=== PATIENT | male | born 1970 | race Caucasian/White ===

== ENCOUNTER 2017-04-05 18:52 | Inpatient (IN) | payer OTHER ==
[~2017-04-05] VITALS: Ht 172.7 cm; Wt 83.9 kg
--- NOTE | 2017-04-05 19:00 | NUR ---
PT HERE FROM INTERMEDIATE BROUHT IN VIA [facility] UN ABLE TO GIVE OWN HX PT BROUGHT FOR SOB REPORT FROM DAY SHIFT RN CONT TO MONITOR PT AWAIT ORDERS
[2017-04-05 19:35] LABS: BASOPHIL % 0.3 % (0-2); PLATELET COUNT 268 x10^3mcL (130-400)
[2017-04-05 19:37] LABS: CALCIUM 8.9 mg/dL (8.5-10.1); CARBON DIOXIDE 31.8 mmol/L (21-32); CHLORIDE SERUM 103 mmol/L (98-107); CREATININE SERUM 1.2 mg/dL (0.7-1.3); GFR1 > 60 mL/min; GLUCOSE SERUM 164 mg/dL (74-106); POTASSIUM SERUM 4.3 mmol/L (3.5-5.1); RED CELL DISTRIBUTION WIDTH 15.6 % (11.5-14.5); SODIUM SERUM 140 mmol/L (136-145)
[2017-04-05 19:53] LABS: ALKALINE PHOSPHATASE 119 U/L (46-116); ALT/SGPT 21 U/L (16-63); AST/SGOT 24 U/L (15-37); BILIRUBIN TOTAL 0.3 mg/dL (0.20-1.00); TOTAL PROTEIN, SERUM 7.6 g/dL (6.4-8.2)
--- NOTE | 2017-04-05 20:39 | NUR ---
PT FOR ADMISSION VS REMAIN THE SAME INFORMED MD OF CANDACE AWAIT ORDERS
--- NOTE | 2017-04-05 20:52 | NUR ---
PT MEDICATED PER MD ORDER
--- NOTE | 2017-04-05 21:59 | NUR ---
REPORT GIVEN TO AGUSTÍN Hernandez ALL QUESTIONS ASKED AND ANSWERED, PT TRANSFERED TO FLOOR IN STABLE CONDITION VIA [facility]OR[facility] Contreras/ AGUSTÍN W/ LL PERSONAL BELONGINGS
--- NOTE | 2017-04-05 22:02 | NUR ---
AGENCY DOCUMENTATION DONE BY Staff Name/Title - :PATRIC LIMON [employer] User ID - : Agency Name - :[facility] Time Documented - From - : To - :
[2017-04-05 22:31] VITALS: BP 122/58
--- NOTE | 2017-04-05 22:42 | NUR ---
RECEIVED PT FROM ED VIA [facility]. TELE 20 PLACED ON PT READING STA. IV NOTED TO RIGHT WRIST PATENT AND INTACT. ENDORSED PT TO PRIMARY NURSE CAITLIN
--- NOTE | 2017-04-05 23:10 | NUR ---
PATIENT'S PLAN OF CARE WAS DISCUSSED AND REVIEWED WITH BATH ATTENDANT:CAITLIN LAGUNAS
[2017-04-05 23:13] LABS: MAGNESIUM 1.8 mg/dL (1.8-2.4); PHOSPHOROUS 4.1 mg/dL (2.5-4.9)
[2017-04-05 23:15] LABS: FREE T4 1.1 ng/dL (0.76-1.46); FREE THYROXINE INDEX 2.8 ug/dL (1.4-4.5); T4(THYROXINE) 9.2 ug/dL (4.7-13.3)
[2017-04-05 23:20] VITALS: BP 122/58
--- NOTE | 2017-04-05 23:33 | NUR ---
RECEIVED PT FROM ADMIT NURSE SURU , PT'S AWAKE LUNG SOUNDS WITH WHEEZES , V/S WNL EXCEPT SAT WAS 82, PLACED PT ON 3L N/C SAT WENT UP TO 89, DR FLORES AWARE ORDERED RT PROTOCOL , BREATHING TREATMENT GIVEN , PT TOLERATED WELL SAT AT THE MOMENT WENT UP TO 92 ON 4L N/C , PIV TO RIGHT ARM INFUSING WELL NS AT 100ML/HR IVPB LEVAQUIN INFUSING AT THE MOMENT , NO A/R NOTED . WILL CON'T TO MONITOR AND ASSIST PT WITH CARE .PT'S ON TELE NUMBER [address] HR 106.
[2017-04-06 00:28] LABS: T3 TOTAL 1.32 ng/mL
[2017-04-06] MEDS ORDERED: DIVALPROEX SOD250 M2 PO (00:49)
[2017-04-06] MEDS ORDERED: CLONAZEPAM0.5 MG PO (00:49)
[2017-04-06] MEDS ORDERED: STOOL SOFTENER100 MG PO (00:50)
[2017-04-06] MEDS ORDERED: AMBIEN5 MG PO (00:50)
[2017-04-06] MEDS ORDERED: KEPPRA1000 M1 PO (00:51)
[2017-04-06] MEDS ORDERED: SEROQUEL200 MG PO (00:51)
[2017-04-06 01:44] LABS: microscopic required? NO
[2017-04-06 01:54] LABS: UA SPECIFIC GRAVITY 1.015 (1.005-1.035); urine erythrocyte NEGATIVE (NEGATIVE)
[2017-04-06 02:01] LABS: AMPHETAMINE QUAL UR NONE DETECTED (NEG <=1000)
--- NOTE | 2017-04-06 03:37 | NUR ---
TEMP 100.5 TYLENOL GIVEN ORDERED .
[2017-04-06 05:53] VITALS: BP 109/59
[2017-04-06 06:13] LABS: PLATELET COUNT 242 x10^3mcL (130-400)
--- NOTE | 2017-04-06 06:27 | NUR ---
ALL DUE MEDS GIVEN NO REACTION NOTED, PIV INTACT INFUSING WELL , TELE ST 101,POST TYLENOL TEMP WENT DOWN TO 98.9. WILL CON'T TO MONITOR PT CLOSELY.
[2017-04-06 06:31] LABS: CALCIUM 8.3 mg/dL (8.5-10.1); CARBON DIOXIDE 30.7 mmol/L (21-32); CHLORIDE SERUM 105 mmol/L (98-107); CREATININE SERUM 1.2 mg/dL (0.7-1.3); GFR1 > 60 mL/min; GLUCOSE SERUM 123 mg/dL (74-106); POTASSIUM SERUM 4.2 mmol/L (3.5-5.1); SODIUM SERUM 141 mmol/L (136-145); TRIGLYCERIDES 36 mg/dL (<150)
[2017-04-06 06:33] LABS: CHOLESTEROL 72 mg/dL (<200); CHOLESTEROL/HDL RATIO 4.5; HDL CHOLESTEROL 16 mg/dL (40-60)
[2017-04-06 06:43] LABS: RED CELL DISTRIBUTION WIDTH 15.4 % (11.5-14.5)
--- NOTE | 2017-04-06 07:40 | NUR ---
RC'D PT RESTING IN BED WITH NO APPARENT SIGNS OF DISTRESS. PT IS AWAKE AND NONVERBAL, RESPONDS TO STIMULI. ON TELE [address] NO APPARENT SIGNS OF DISTRESS. PALP PULSES, NO EDEMA NOTED. RESPIRATIONS EQUAL AND UNLABORED BILAT. NONPRODUCTIVE COUGH NOTED. WHEEZE PRESENT BILAT. ON 4L O2. RT PROTOCOL. ABDOMEN SOFT AND NONTENDER. ACTIVE BS. NO APPARENT SIGNS OF N/V. INCONTINENT AT TIMES. GENERALIZED WEAKNESS. PER REPORT PT USES WC AT HOME. SKIN W/D/. OLD SCARS NOTED ON BLE WITH SLIGHT REDDNESS. NO APPARENT SIGNS OF PAIN. RW IV PATENT AND INFUSING. PT IS CALM. EDUCATED ON USING CALL LIGHT WHEN NEEDING ASSISTANCE. WILL CONTINUE TO REEDUCATE. BED IN LOW POSITION. CALL LIGHT IN REACH. WILL CONTINUE TO MONITOR.
[2017-04-06 07:56] LABS: BAND NEUTROPHIL 17 % (0-10); BASOPHIL 0 % (0-2); MONOCYTE 13 % (0-7); MYELOCYTE 1 % (0-2); SEGMENTED NEUTROPHILS 61 % (37-75)
[2017-04-06 07:57] LABS: PLATELET MORPHOLOGY PLATELETS NORMAL; rbc morphology (normal/abnorm) ABNORMAL (NORMAL)
[2017-04-06 08:09] VITALS: BP 110/48
[2017-04-06 11:57] VITALS: BP 101/56
--- NOTE | 2017-04-06 12:25 | NUR ---
PT RESTING IN BED WITH EYES CLOSED. VISIBLE RESPIRATIONS EQUAL AND UNLABORED BILAT. NO APPARENT SIGNS OF DISTRESS. BED IN LOW POSITION. CALL LIGHT IN REACH. BED IN LOW POSITION.
--- NOTE | 2017-04-06 16:00 | NUR ---
PT AWAKE AND ALERT. NONVERBAL BUT RESPONDS TO STIMULI. PT ABLE TO NOD HEAD TO RESPOND TO QUESTIONS. EYES PEERLA. WILL CONTINUE TO MONITOR.
[2017-04-06 17:16] VITALS: BP 111/58
--- NOTE | 2017-04-06 18:17 | NUR ---
TEMP 100.2. MEDICATED WITH TYLENOL PO PER MED REC. CALL LIGHT IN REACH. BED IN LOW POSITION. WILL CONTINUE TO MONITOR.
--- NOTE | 2017-04-06 18:51 | NUR ---
PT RESTING IN BED WITH NO APPARENT SIGNS OF DISTRESS. RESPIRATIONS EQUAL AND UNLABORED. NON-PRODUCTIVE COUGH PRESENT. ON TELE WITH ST. ON 3L O2 VIA NC. IV PATENT AND INFUSING. BED IN LOW POSITION. CALL LIGHT IN REACH. WILL ENDORSE TO GUEST SERVICE SUPERVISOR.
--- NOTE | 2017-04-06 19:57 | NUR ---
PT IS OPEN EYE BUT NON VERBAL, ABLE TO NODE HEAD OR SHAKE THE HEAD FOR SOME SIMPLE QUESTION, LUNG SOUND CLEAR BILATERAL, NO COUGH, NO SOB AT THIS TIME, PT IS ON 4L/MIN O2 VIA NC, PO2 98%, PT IS ON 20, ST, NO S/S OF CHEST PAIN OR DISCOMFORT, BOWEL SOUND PRESENT ALL 4 QUADRANTS, NO DISTENTION, NO TENDER. PEDAL PULSE PRESENT BOTH FEET, NO EDEMA NOTED, IV AT RIGHT WRIST, NO LEAKING, NO INFILTRATION. PUT PT IS ON SEIZURE PRECAUTION. ALL ADLS ASSIST, ALL NEED MET, CALL LIGHT IN REACH, WILL CONTINUE TO MONTIOR.
[2017-04-06 20:43] VITALS: BP 126/59
--- NOTE | 2017-04-06 21:00 | NUR ---
PT HAD TEMP 101.3, PT IS NOT DUE FOR TYLENOL, CALLED THE DR. CARTWRIGHT. DR. MOORE WILL ORDER TORADOL. WILL CONTINUE TO MONITOR THE PT.
--- NOTE | 2017-04-07 00:35 | NUR ---
RECHECK THE TEMP 97.7. WILL CONTINUE TO MONITOR.
--- NOTE | 2017-04-07 00:56 | NUR ---
APPLY THE OPITFORM ON BOTH ELBOW TO PROTECT THE SKIN BREAKDOWN. WILL CONTINUE TO MONITOR THE PT.
--- NOTE | 2017-04-07 03:00 | NUR ---
PT DIDN'T HAS URINE OUTPUT SINCE SHIFT START, BLADDER SCAN SHOW OVER 200 ML URINE IN BLADDER, CALLED DR. CARTWRIGHT, DEVI CATH ORDER RECEIVED, AND CARRIED OUT. INSERT THE DEVI CATH, 300ML YELLOW URINE IS COME OUT, WILL CONTINUE TO MONITOR THE PT.
--- NOTE | 2017-04-07 03:14 | NUR ---
ASKED DR. CARTWRIGHT REGARDING THE UA TEST BECAUSE OF THE NEW DEVI CATH, AND ALSO INFORM DR. PT ALREADY HAD UA DONE ON YESTERDAY, 04/06, DR. CARTWRIGHT STATE IT'S TOO CLOSE, NO NECCESSARY TO DO ANOTHER UA. WILL CONTINUE TO MONITOR THE PT.
--- NOTE | 2017-04-07 05:09 | NUR ---
PT IS SLEEPING, AWAKE BY TOUCH, NON VERBAL, NO RESPIRATORY DISTRESS, NO S/S OF PAIN OR DISCOMFORT, NO SEIZURE ACTIVE THIS SHIFT, IV AT RIGHT FA, NO LEAKING, NO INFILTRATION. TURN AND REPOSITION PT EVERY 2 HOUR PROTOCAL, ALL ADLS ASSIST, ALL NEED MET, CALL LIGHT IN REACH, WILL CONTINUE TO MONITOR.
[2017-04-07 06:20] VITALS: BP 90/45
[2017-04-07 07:14] LABS: BASOPHIL % 0.2 % (0-2); PLATELET COUNT 231 x10^3mcL (130-400)
[2017-04-07 07:17] LABS: RED CELL DISTRIBUTION WIDTH 16.1 % (11.5-14.5)
[2017-04-07 07:40] LABS: CALCIUM 8.4 mg/dL (8.5-10.1); CARBON DIOXIDE 30.4 mmol/L (21-32); CHLORIDE SERUM 106 mmol/L (98-107); CREATININE SERUM 1.2 mg/dL (0.7-1.3); GFR1 > 60 mL/min; GLUCOSE SERUM 83 mg/dL (74-106); POTASSIUM SERUM 4.7 mmol/L (3.5-5.1); SODIUM SERUM 137 mmol/L (136-145)
--- NOTE | 2017-04-07 07:40 | NUR ---
RC'D PT RESTING IN BED WITH NO APPARENT SIGNS OF DISTRESS. PT AWAKE AND ALERT, NONVERBAL. PT RESPONDS WITH MOVEMENT TO VOICE AND STIMULI. RESPIRATIONS EQUAL AND UNLABORED. WHEEZE NOTED IN LUNGS. NON-PRODUCTIVE COUGH PRESENT. RT PROTOCOL. ON 4L O2 VIA NC. NO APPARENT SIGNS OF DISTRESS. ON TELE [address] PALP PULSES, NO EDEMA NOTED. ABDOMEN SOFT AND NONTENDER. ACTIVE BS. NO APPARENT SIGNS OF N/V. DEVI CATHETER PRESENT, WNL. REGGIE URINE NOTED WITH NO FOUL SMELL. GENERALIZED WEAKNESS. PT USES WC AT HOME. SKING W/D/I. OLD SCARS NOTED ON BLE. NO APPARENT SIGNS OF PAIN. IV PATENT AND INFUSING. BED IN LOW POSITION. CALL LIGHT IN REACH. PT EDUCATED ON USING CALL LIGHT WHEN NEEDING UNDERSTANDING. NO INDICATION OF UNDERSTANDING. WILL CONTINUE TO REEDUCATE. WILL CONTINUE TO MONITOR.
[2017-04-07 09:12] VITALS: BP 98/57
--- NOTE | 2017-04-07 12:13 | NUR ---
Intervention/RDN Recommendation(s): 1. Recommend ST evaluation for possible diet texture change. 2. Continue on current diet in appropriate texture per BOATBUILDER SUPERVISOR recommendations. 3. Consult RDN prn.
--- NOTE | 2017-04-07 12:13 | NUR ---
Initial Nutrition Assessment- Dx: PNA PMHx: seizure disorder, mental retardation, cerebral palsy PSHx: None Labs: (04/07/17) Na 137, K 4.7, Glucose 83, BUN 25H, Ca 8.4L, Phos 5H. Meds: Ambien, Colace, Depakote, Keppra, Levaquin, [place], Morphine sulfate, Sodium chl 0.9%, Tylenol, valproic acid, Zithromax Diet: Regular PO Intakes: 86-98-19-100%; overall average 68% x 4 meals; likely inadequate. Ht: 68 inches (154 pounds) Wt: 80.286 kg (177 pounds) BMI: 22.8 kg/m2, normal for age. IBW: 154 pounds (70 kg) %IBW: 100% UBW: Unknown Age: 46 Food Allergies: No know food allergies Skin: Bebo 14 Edema: None noted GI: Last BM 04/05/17 Pt admitted with dx: aspiration pneumonia, seizure disorder, developmental delay with mood disturbance, cerebral palsy, insomnia. Per STEEL HANGER, meal had to be chopped in small pieces as patient is coughing when eating; RN aware, RN attempted to feed patient also. STEEL HANGER reports patient does not appear to be using teeth to chew, STEEL HANGER described oral motions during meal time as slapping of tongue, lips together, tongue often sticks out. Patient may benefit from ST eval for possible diet texture change due to nursing report of difficulty chewing. RDN spoke with RN, STEEL HANGER, and regarding patient; RN states patient appears to be pocking food. RDN discussed recommendation for swallow/ST eval; MD Wu agrees. Problem with: N: no V: no D: no C: no Problems with: Chewing: possible Swallowing: possible Current appetite: fair Recent wt changes: %wt change: unknown Vitamin/Supplement: unknown Special Diet at Home: regular Physical activity: none Education: none Estimated Nutritional Needs Based on actual body weight of 80.286 kg. Energy: 1693-9806 kcal/d (25-30 kcal/kg for maintenance) Protein: 64-80 gm/d (0.8-1 gm/kg for maintenance) Fluid: 7648-1439 mL/d (1 mL/kcal) or per MD. Nutrition Diagnosis 1. Possible chewing difficulty related to pathophysiological causes as evidenced by nursing report of patient appears to have difficulty chewing, nursing report of having to chop up food at mealtimes, suboptimal PO intakes between 30-100%. Intervention/RDN Recommendation(s): 1. Recommend ST evaluation for possible diet texture change. 2. Continue on current diet in appropriate texture per SET BUILDER recommendations. 3. Consult RDN prn. Monitor/Evaluate Goal: Intake via PO intakes to meet least 75% of estimated needs. Monitor: PO intakes and/or nutrition support tolerance, Labs, GI function F/U in 3-5 days as moderate risk (04/10-04/12)
--- NOTE | 2017-04-07 12:24 | NUR ---
PT RESTING IN BED WITH NO APPARENT SIGNS OF DISTRESS. RESPONDS TO VOICE AND STIMULI. EYES PEERLA. PT ABLE TO NOD HEAD TO QUESTIONS. RESPIRATIONS EQUAL AND UNLABORED. BED IN LOW POSITION. SEIZURE PRECAUTIONS IN PLACE. WILL CONTINUE TO MONITOR.
[2017-04-07 17:32] VITALS: BP 112/49
--- NOTE | 2017-04-07 18:38 | NUR ---
PT RESTING IN BED WITH NO APPARENT SIGNS OF DISTRESS. NO SIGNS OF PAIN OR DISCOMFORT. RESPIRATIONS EQUAL AND UNLABORED BILAT. ON 3L O2 VIA NC. WHEEZE NOTED. RT PROTOCOL. IV PATENT AND INFUSING. BED IN LOW POSITION. CALL LIGHT IN REACH. WILL CONTINUE TO MONITOR.
--- NOTE | 2017-04-07 19:45 | NUR ---
SHIFT REASSESSMENT DONE.PATIENT AWAKE BUT CONFUSED.BROTHER AT BEDSIDE.SUPPORTIVE OF CARE.PATIENT WHEEZING,IV DECREASE TO TKO FOR NOW.RT PROTOCOL.BWDBOUND/WHEELCHAIR.MED SURG PATIENT.OLD SCAR TO BLE.SCD.WATCH CLOSELY FOR SAFETY.
--- NOTE | 2017-04-07 20:35 | NUR ---
PATIENT PUT IN OXIMIZER 4 LITERS,WAS DESATURATING AT 79%.PM MEDS GIVEN,WAS YELLIN EARLIER.HAS TO MIX MEDS WITH APPLE SAUCE.
--- NOTE | 2017-04-07 20:37 | NUR ---
PATIENT QUIET AND SETTLED DOWN,WAS MAKING NOISE EARLIER.QUIET ENVIRONMENT MAINTAINED.
[2017-04-07 20:42] VITALS: BP 118/69
[2017-04-07 20:52] VITALS: BP 118/69
--- NOTE | 2017-04-07 21:30 | NUR ---
100% NOW ON 4 LITERS OXIMIZER.RESTING QUIETLY,CHECK AT INTERVALS..
--- NOTE | 2017-04-07 22:56 | NUR ---
PATIENT O2 AT 5 NOW OXIMIZER.
--- NOTE | 2017-04-07 23:09 | NUR ---
DR REID HERE .SEEN PATIENT,WILL ORDER IV TO TKO AND JUST CONTINUE WITH TX RESP.
--- NOTE | 2017-04-08 00:19 | NUR ---
PATIENT HAS LOW GRADE FEVER,GIVEN TYLENOL,ALSO GIVEN SPONGE BATH,ATB SCHEDULED.PATIENT REPOSITIONED FOR COMFORT.
--- NOTE | 2017-04-08 01:02 | NUR ---
BROTHER OF PATIENT SANTIAGO CALLED,UPDATED ABOUT PATIENT CONDITION,HE MAKES THIS NOISE Q NOW AND THEN.GOT IRRITATED,GIVEN SPONGE BATH.
--- NOTE | 2017-04-08 04:51 | NUR ---
EPISODE OF MAKING LOUD SOUND,REPOSITIONED.ATB SCHEDULE WILL GIVE.IV SITE SECURED R WRIST,COVERED WITH DRESSING.
[2017-04-08 05:21] VITALS: BP 88/43
--- NOTE | 2017-04-08 05:49 | NUR ---
PATIENT ATB GIVEN.NS AT 20 CC/ HOUR.
--- NOTE | 2017-04-08 05:59 | NUR ---
PATIENT REMAINS ON OXIMIZER 4 LITERS,SATURATION 97%
--- NOTE | 2017-04-08 07:30 | NUR ---
RC'D PT RESTING IN BED WITH NO APPARENT SIGNS OF DISTRESS. PT AWAKE AND ALERT. NONVERBAL. RESPONDS WITH GESTURES TO STIMULI AND VOICE. MED-SURG. NO APPARENT SIGNS OF CHEST PAIN/PRESSURE. PALP PULSES, NO EDEMA NOTED. RESPIRATIONS EQUAL AND UNLABORED BILAT. WHEEZE NOTED IN LUNGS. OXIMIZER 4L IN PLACE. ABDOMEN SOFT AND NONTENDER. ACTIVE BS. NO APPARENT SIGNS OF N/V. DEVI CATHETER IN PLACE, REGGIE URINE WITH NO FOUL SMELL NOTED. GENERALIZED WEAKNESS. PT USES WC AT HOME. SKIN W/D/I./ OLD SCARS NOTED ON BLE. NO APPARENT SIGNS OF PAIN AT THIS TIME. IV PATENT AND INFUSING. BED IN LOW POSITION. PT EDUCATED ON USING CALL LIGHT WHEN NEEDING ASSISTANCE. CALL LIGHT IN REACH. WILL CONTINUE TO REMIND. WILL COTINUE TO MONITOR.
--- NOTE | 2017-04-08 07:39 | NUR ---
NOTICED LOW BP FROM 0600 88/43 (58) HR 98. RECHECKED BP 106/60 (69) HR 103. BP IMPROVED. PT AWAKE AND ALERT. WILL CONTINUE TO MONITOR.
[2017-04-08 07:45] LABS: BASOPHIL % 0.2 % (0-2); PLATELET COUNT 272 x10^3mcL (130-400)
[2017-04-08 07:51] LABS: CALCIUM 8.3 mg/dL (8.5-10.1); CARBON DIOXIDE 29.7 mmol/L (21-32); CHLORIDE SERUM 107 mmol/L (98-107); CREATININE SERUM 1.2 mg/dL (0.7-1.3); GFR1 > 60 mL/min; GLUCOSE SERUM 74 mg/dL (74-106); POTASSIUM SERUM 4.5 mmol/L (3.5-5.1); SODIUM SERUM 141 mmol/L (136-145)
[2017-04-08 07:57] LABS: RED CELL DISTRIBUTION WIDTH 15.7 % (11.5-14.5)
[2017-04-08 09:16] VITALS: BP 99/67
--- NOTE | 2017-04-08 11:46 | NUR ---
PT RESTING IN BED WITH NO APPARENT SIGNS OF DISTRESS. RESPIRATIONS EQUAL AND UNLABORED. AUDIBLE WHEEZE PRESENT. NO APPARENT SIGNS OF DISCOMFORT/PAIN. BED IN LOW POSITION. CALL LIGHT IN REACH. WILL CONTINUE TO MONITOR.
[2017-04-08 17:38] VITALS: BP 96/44
--- NOTE | 2017-04-08 18:30 | NUR ---
PT RESTING IN BED WITH FAMILY PRESENT AT BEDSIDE. RESPIRATIONS EQUAL AND SLIGHTLY LABORED. PT ON OXIMIZER 4L. NO APPARENT SIGNS OF DISCOMFORT/PAIN. DEVI CATHETER IN PLACE, WNL. IV PATENT AND INFUSING. BED IN LOW POSITION. CALL LIGHT IN REACH. WILL ENDORSE TO NIGHT NURSE.
[2017-04-08 19:53] VITALS: BP 108/51
--- NOTE | 2017-04-08 19:53 | NUR ---
BOLUS 500ML IS DONE, RECHECK THE B/P IS 108/51 MAP 70, WILL CONTNUE TO MONITOR THE PT.
--- NOTE | 2017-04-08 19:54 | NUR ---
PT IS AWAKE, NON VERBAL, UNABLE TO TELL WHAT HE NEEDS. LUNG SOUND WHEEZING BILATERAL, OCCASIONALLY COUGH, NO S/S OF SOB AT THIS TIME, PT IS ON 6L/MIN O2 VIA OXYMIZER, PO2 97%, NO S/S OF CHEST PAIN OR DISCOMFORT, BOWEL SOUND PRESENT ALL 4 QUADRANTS, NO DISTENTION, NO TENDER. PEDAL PULSE PRESENT BOTH FEET, NO EDEMA NOTED, IV AT RIGHT WRIST, NO LEAKING, NO INFILTRATION. DEVI CATH IS IN PLACE, URINE IS YELLOW. CONTINUE ON SEIZURE PRECAUTION. ALL ADLS ASSIST, ALL NEED MET, CALL LIGHT IN REACH, WILL CONTINUE TO MONITOR.
[2017-04-08 20:55] VITALS: BP 108/51
[2017-04-09 05:06] VITALS: BP 106/59
--- NOTE | 2017-04-09 05:28 | NUR ---
PT IS SLEEPING, AWAKE BY TOUCH, NO S/S OF CHEST PAIN OR DISCOMFORT, NO S/S OF RESPIRATORY DISTRESS, NO S/S OF PAIN OR DISCOMFORT, DEVI CATH IN PLACE, IV AT RIGHT WRIST, NO LEAKING, NO INFILTRATION, ALL ADLS ASSSIT, ALL NEED MET, CALL LIGHT IN REACH, WILL CONTINUE TO MONITOR.
[2017-04-09 06:54] LABS: PLATELET COUNT 289 x10^3mcL (130-400)
[2017-04-09 07:03] LABS: BASOPHIL % 0 % (0-2); RED CELL DISTRIBUTION WIDTH 15.6 % (11.5-14.5)
[2017-04-09 07:10] LABS: CALCIUM 8.7 mg/dL (8.5-10.1); CARBON DIOXIDE 30.4 mmol/L (21-32); CHLORIDE SERUM 108 mmol/L (98-107); CREATININE SERUM 1.1 mg/dL (0.7-1.3); GFR1 > 60 mL/min; GLUCOSE SERUM 143 mg/dL (74-106); POTASSIUM SERUM 4.7 mmol/L (3.5-5.1); SODIUM SERUM 142 mmol/L (136-145)
--- NOTE | 2017-04-09 07:30 | NUR ---
RECEIVED PT FROM NIGHT NURSE IN NO ACUTE DISTRESS. RESPIRATIONS EVEN AND UNLABORED ON 8L VIA NC OXYMIZER. PT AWAKE, UNABLE TO ASSESS ORIENTATION DUE TO COGNITIVE LIMITATION. IVF INFUSING AT BEDSIDE. BED IN LOWEST POSITION. CALL LIGHT WITHIN REACH. WILL CONTINUE TO MONITOR.
[2017-04-09 08:03] VITALS: BP 101/59
--- NOTE | 2017-04-09 08:15 | NUR ---
PT COUGHING UP FOOD, DR ATKINS MADE AWARE.
--- NOTE | 2017-04-09 12:43 | NUR ---
PT RESTING IN BED IN NO ACUTE DISTRESS. RESPIRATIONS EVEN AND UNLABORED ON 8L VIA OXYMIZER. AWAKE, UNABLE TO ASSESS ORIENTATION DUE TO COGNITIVE LIMITATIONS. PT HAD 2 EPISODES OF DIARRHEA THIS MORNING, PT CLEANED AND CHANGED. CDIFF RESULTS PENDING. DEVI IN PLACE, DRAINING YELLOW URINE. NO SIGNS OF PAIN AT THIS TIME. SEIZURE PRECAUTIONS IN PLACE. IVF INFUSING AT BEDSIDE, SPEECH THERAPY AT BEDSIDE. BED IN LOWEST POSITION. CALL LIGHT WITHIN REACH. WILL CONTINUE TO MONITOR.
--- NOTE | 2017-04-09 13:15 | NUR ---
SWALLOW EVAL PERFORMED BY SPEECH THERAPY. SPEECH THERAPIST RECOMMENDS PUREE DIET WITH NECTAR THICK DIET. DR ATKINS NOTIFIED.
--- NOTE | 2017-04-09 13:38 | NUR ---
MID TEACHER note (bedside swallow evaluation completed) [id number]. Bedside swallow evaluation completed following clearance by RN (Iker). Please see report for details. MID TEACHER provided pt's brother (Liborio) at bedside with education regarding purpose of evaluation and rationale for recommendations. Pt's brother verbalized agreement and understanding at this time. Recommend: 1) pureed textures 2) nectar-thick liquids 3) 100% feeding assistance 4) strict aspiration precautions (including pt must be fully awake/alert/upright for any PO intakes, alternate small/slow bites and sips, stop giving PO if pt becomes less alert/sleepy/SOB/coughing) 5) MID TEACHER to f/u for dysphagia/diet tolerance 2 x week x 2 weeks as pt willing/able to participate safely. G-codes: [id number] [id number] [facility] NOMS level 3. PVE for d/w RN (Iker) prior to and following evaluation.
[2017-04-09 16:22] VITALS: BP 95/47
--- NOTE | 2017-04-09 18:37 | NUR ---
PT RESTING IN BED INNO ACUTE DISTRESS. RESPIRATIONS EVEN AND UNLABORED ON 8L VIA OXYMIZER. AWAKE, UNABLE TO ASSESS ORIENTATION DUE TO COGNITIVE LIMITATIONS. DEVI IN PLACE DRAINING YELLOW URINE. PT CHANGED AND CLEANED. NO SIGNS OF PAIN NOTED AT THIS TIME. PT TOLERATED DINNER WELL. NO PROBLEMS NOTED WITH SWALLOWING FOOD/DRINKS. IVF INFUSING AT BEDSIDE. BED IN LOWEST POSITION. CALL LIGHT WITHIN REACH. WILL ENDORSE TO NIGHT NURSE.
--- NOTE | 2017-04-09 19:30 | NUR ---
RECEIVED PT AWAKE AND ALERT. VERBAL WITH MUMBLED SPEECH. RESTING IN BED WITH HOB ELEVATED. ON O2 8L VIA OXIMYZER 95%. LUNGS DIMINISHED. NO S/S OF RESPIRATORY DISTRESS NOTED. ABD SOFT AND ROUND. BOWEL SOUNDS ACTIVE. SKIN WARM AND DRY. IV TO RIGHT WRIST PATENT AND INTACT. NO S/S OF INFECTION NOTED. NOTED WITH TRACE EDEMA. PULSES PALPABLE. BLE ELEVATED ON PILLOW. NO S/S OF PAIN NOTED AT THIS TIME. CALM AND COOPERATIVE WITH CARE. BED IN LOW POSITION. SIDE RAILS UP. SEIZURE PRECAUTIONS IN PLACE. NO S/S OF DISTRESS OR DISCOMFORT NOTED AT THIS TIME. CALL LIGHT WITHIN REACH. WILL CONTINUE TO MONITOR.
[2017-04-09 22:30] VITALS: BP 102/47
[2017-04-10] VITALS (10 sets, daily range): BP systolic 83–110; BP diastolic 36–62
--- NOTE | 2017-04-10 00:30 | NUR ---
PT RESTING IN BED WITH EYES CLOSED. BREATHING EQUAL AND UNLABORED. NO S/S OF RESPIRATORY DISTRESS NOTED ON O2 8L VIA OXYMIZER. HOB ELEVATED. IV PATENT AND INFUSING WELL. F/C DRAINING YELLOW URINE. RESTING COMFORTABLY WITH RELAXED FACIAL FEATURES. CALL LIGHT WITHIN REACH. WILL CONTINUE TO MONITOR.
[2017-04-10 06:31] LABS: PLATELET COUNT 320 x10^3mcL (130-400)
--- NOTE | 2017-04-10 06:34 | NUR ---
PT AWAKE AND ALERT AT THIS TIME. REMAINS ON O2 8L VIA OXYMIZER. NO S/S OF RESPIRATORY DISTRESS NOTED. IV PATENT AND INFUSING WELL. NO S/S OF PAIN NOTED. PT HAD BM; GOOD PERICARE RENDERED. CALM AND COOPERATIVE WITH CARE. F/C DRAINING YELLOW URINE. NO S/S OF DISTRESS NOTED. REPOSITIONED FOR COMFORT. BED IN LOW POSITION. CALL LIGHT WITHIN REACH. WILL CONTINUE TO MONITOR.
[2017-04-10 06:43] LABS: CALCIUM 8.9 mg/dL (8.5-10.1); CARBON DIOXIDE 32.6 mmol/L (21-32); CHLORIDE SERUM 111 mmol/L (98-107); GFR1 > 60 mL/min; GLUCOSE SERUM 103 mg/dL (74-106); MAGNESIUM 2.2 mg/dL (1.8-2.4); PHOSPHOROUS 3.4 mg/dL (2.5-4.9); POTASSIUM SERUM 3.9 mmol/L (3.5-5.1); SODIUM SERUM 147 mmol/L (136-145)
--- NOTE | 2017-04-10 07:17 | NUR ---
RECEIVED PT FROM NIGHT NURSE IN NO ACUTE DISTRESS. RESPIRATIONS EVEN AND UNLABORED ON RA. PT AWAKE, UNABLE TO ASSESS ORIENTATION DUE TO COGNITIVE LIMITATION. DEVI IN PLACE DRAINING YELLOW URINE. SEIZURE PRECAUTIONS IN PLACE. IVF INFUSING AT BEDSIDE. BED IN LOWEST POSITION. CALL LIGHT WITHIN REACH. WILL CONTINUE TO MONITOR.
[2017-04-10 07:22] LABS: BASOPHIL % 0 % (0-2); RED CELL DISTRIBUTION WIDTH 15.7 % (11.5-14.5)
--- NOTE | 2017-04-10 08:07 | NUR ---
WBC 15.3. DR ATKINS AWARE
--- NOTE | 2017-04-10 12:51 | NUR ---
PT RESTING IN BED, PT EXHIBITING ANXIETY. ULTRASOUND AND RADIOLOGIST AT BEDSIDE TO PERFORM THORACENTISIS. BROTHER AT BEDSIDE. RESPIRATIONS EVEN, SLIGHTLY LABORED ON 8L VIA OXYMIZER. IVF INFUSING AT BEDSIDE. WILL CONTINUE TO MONITOR.
[2017-04-10 16:53] LABS: APPEARANCE FLUID HAZY; COLOR FLUID YELLOW; SOURCE FLUID PLEURAL
[2017-04-10 17:00] LABS: RBC FLUID 3070 /cumm; WBC FLUID 15 /cumm
--- NOTE | 2017-04-10 17:00 | NUR ---
Pt TITRATED TO 6L OXYMIZER. SPO2 95%. Pt THEN TOOK OFF OXYMIZER AND COULD NOT GET IT BACK ON, EVEN WITH THE HELP OF HIS BROTHER. CHARGE NURSE AND RN AWARE. WILL CALL RT IF NEED BE.
[2017-04-10 17:02] LABS: LYMPHOCYTE FLUID 88 %; MONOCYTE FLUID 7 %
--- NOTE | 2017-04-10 18:48 | NUR ---
PT RESTING IN BED IN NO ACUTE DISTRESS. RESPIRATIONS EVEN AND UNLABORED ON 4L VIA OXYMIZER. PT AWAKE, UNABLE TO ASSESS ORIENTATION DUE TO COGNITIVE LIMITATIONS. DEVI DRAINING YELLOW URINE. IVF INFUSING AT BEDSIDE. FAMILY AT BEDSIDE. BED IN LOWEST POSITION. CALL LIGHT WITHIN REACH. WILL ENDORSE TO NIGHT NURSE.
--- NOTE | 2017-04-10 20:16 | NUR ---
PT CURRENTLY RESTING IN BED, NO ACUTE DISTRESS. NONVERBAL. NO TELE, MED/SURG. PULSES PALPABLE IN ALL EXTREMITIES, TRACE EDEMA NOTED TO BLE. LUNG SOUNDS DIMINISHED BILATERALLY, NO RESPIRATORY DISTRESS NOTED. BOWEL SOUNDS ACTIVE, LAST BM 04/10/17, LOOSE STOOLS. DEVI CATHETER IN PLACE, YELLOW URINE NOTED. GENERALIZED WEAKNESS NOTED. SKIN INTACT. IV PATENT AND INTACT. BED IN LOWEST POSITION, SIDE RAILS UP X2, SCDS IN PLACE, CALL LIGHT WITHIN REACH. WILL CONTINUE TO MONITOR.
--- NOTE | 2017-04-10 20:26 | NUR ---
PROGRAMS ASSISTANT NOTE S: Pt seen at bedside, baseline. Brother Liborio present. O: Pt seen for PROGRAMS ASSISTANT POC. Pt received puree/nectar dinner earlier, and per brother Liborio, pt was fed 50% w/"few coughs here and there.". PROGRAMS ASSISTANT provided pt w/puree via 1/2 tsp and nectar thick liquids via spoon and pinched straw, no overt s/sx of aspiration noted. PROGRAMS ASSISTANT educated brother on pinching straw to control flow 2/2 brother concerned about fast rate of intake. Brother verbalized understanding. A: Pt tolerating puree/nectar thick fluids w/no overt s/sx of aspiration P: Recommend continue PROGRAMS ASSISTANT POC
--- NOTE | 2017-04-10 23:55 | NUR ---
PT CURRENTLY RESTING IN BED, NO ACUTE DISTRESS. TEMP REDUCED TO 99.7. WILL CONTINUE TO MONITOR.
--- NOTE | 2017-04-11 05:42 | NUR ---
PT SLEPT PERIODICALLY THROUGHOUT NIGHT, NO ACUTE DISTRESS. ALL NEEDS MET AND ATTENDED TO. NO SIGNIFICANT CHANGES. IV PATENT AND INTACT. BED IN LOWEST POSITION, SIDE RAILS UP X2, SCDS IN PLACE, CALL LIGHT WITHIN REACH. WILL ENDORSE CARE TO ONCOMING NURSE.
[2017-04-11 05:49] VITALS: BP 100/55
[2017-04-11 06:01] LABS: BASOPHIL % 0.3 % (0-2); PLATELET COUNT 363 x10^3mcL (130-400)
[2017-04-11 06:37] LABS: CALCIUM 8.4 mg/dL (8.5-10.1); CARBON DIOXIDE 32.5 mmol/L (21-32); CHLORIDE SERUM 112 mmol/L (98-107); CREATININE SERUM 1.1 mg/dL (0.7-1.3); GFR1 > 60 mL/min; GLUCOSE SERUM 78 mg/dL (74-106); MAGNESIUM 1.9 mg/dL (1.8-2.4); PHOSPHOROUS 4.8 mg/dL (2.5-4.9); POTASSIUM SERUM 4.1 mmol/L (3.5-5.1); SODIUM SERUM 149 mmol/L (136-145)
[2017-04-11 06:39] LABS: RED CELL DISTRIBUTION WIDTH 15.7 % (11.5-14.5)
--- NOTE | 2017-04-11 07:20 | NUR ---
RECEIVED PT IN BED, A/A/O X 4, CALM, COOPERATIVE. ON TELE # 34, SB WITH ELEVATED T-WAVES, HR 58. NO RESPIRATORY DISTRESS, PAIN, OR DISCOMFORT NOTED. ABD SOFT, ROUND, NON-TENDER, NORMOACTIVE BOWEL SOUNDS X 4 QUADS, LAST BM 04/08/17. HAS 4 SURGICAL WOUNDS COVERED WITH BAND-AIDS, CDI. IV SITE TO LAC CDI, RUNNING NS 50 ML/HR. SIDE RAILS UP X 2, BED IN LOW POSITION, CALL LIGHT WITHIN REACH. WILL CONTINUE TO MONITOR.
--- NOTE | 2017-04-11 07:40 | NUR ---
RECEIVED PT IN BED, AWAKE, MAKES GRUNTING NOISE WHEN TALKING OR ASKED, ON SEIZURE PRECAUTIONS. EDYTA RADIAL AND PEDAL PULSES PRESENT, TRACE EDEMA TO BLE, CAP REFILL < 3 SECS. BUL CLEAR, BLL DIM, CHEST RISING EVENLY, ON 4LPM OXYMIZER, SPO2 95%, NO RESPIRATORY DISTRESS NOTED. IV SITE ON RW CDI, RUNNING NS 20 ML/HR. SIDE RAILS UP X 2, BED IN LOW POSITION. CALL LIGHT WITHIN REACH. WILL CONTINUE TO MONITOR.
--- NOTE | 2017-04-11 08:20 | NUR ---
DR PLASCENCIA, RESIDENTS, CHARGE NURSE, AND ASSIGNED NURSE CAME IN TO SEE PT; DR DISCUSSED PLAN OF CARE FOR TODAY.
[2017-04-11 09:41] VITALS: BP 126/71
--- NOTE | 2017-04-11 10:40 | NUR ---
PT IN BED, WATCHING TV. NO RESPIRATORY DISTRESS, PAIN, OR DISCOMFORT. PT WAS TURNED TO HIS LEFT SIDE. WILL CONTINUE TO MONITOR.
--- NOTE | 2017-04-11 12:20 | NUR ---
PT IN BED, RESTING COMFORTABLY, BROTHER BY BEDSIDE. NO RESPIRATORY DISTRESS, PAIN, OR DISCOMFORT NOTED. PT WAS TURNED TO LIE ON HIS BACK. WILL CONTINUE TO MONITOR.
[2017-04-11 14:07] VITALS: Ht 172.7 cm; Wt 83.9 kg
--- NOTE | 2017-04-11 14:10 | NUR ---
PT IN BED, WATCHING TV. NO RESPIRATORY DISTRESS, PAIN, OR DISCOMFORT. TURNED TO HIS RIGHT SIDE. WILL CONTINUE TO MONITOR.
--- NOTE | 2017-04-11 15:00 | NUR ---
DR BROWN MADE AWARE THAT PT'S BP 89/33 WITH MAP 53, PT AROUSABLE, HR 78, O2 SAT 94%, RR 18, 0/10 PAIN. REPEATED BP WITH SIMILAR RESULTS. PT ALSO HAD LARGE LOOSE, FOUL-SMELLING STOOL. GAVE ORDER FOR BOLUS NS 500 ML. ORDER CARRIED OUT.
--- NOTE | 2017-04-11 16:34 | NUR ---
PT'S BP WAS RETAKEN, 87/43, MAP 52. DR BROWN MADE AWARE, GAVE ANOTHER ORDER OF BOLUS NS 500 ML. ORDER CARRIED OUT.
--- NOTE | 2017-04-11 17:19 | NUR ---
* ST D/C NOTE * Pt seen at bedside w/casing sewer present. Caregiver/casing sewer reporting pt exhibiting no difficulty masticating or swallowing current PO diet consistency. Pt tolerating 4/4 alternating PO trials of puree apple sauce 3-5 CCs at a time via a spoon, as well as 5/5 alternating PO trials of nectar-thick apple juice 3-5 CCs at a time via a spoon, all w/o s/s of aspiration. Pt and caregiver/casing sewer education completed regarding safe swallow compensatory strategies pt and caregivers/nsg could utilize to aid w/swallow function, w/pt attentive and w/caregiver/casing sewer verbalizing understanding and agreement w/clinician's recommendations. Pt and caregivers/nsg education completed regarding pt's tolerance of puree textures w/NTL, as well as benefits of abiding by aspiration precautions, and prognosis for improvement, with pt attentive and caregivers/nsg verbalizing understanding and agreement once again. Recommend: - Puree textures w/[place]-thick liquids for all meals - STRICT aspiration precautions w/feeder for all meals - Oral care to be completed after PO intake No further ST follow up recommended at this time. [id number] CI NOMS Level 2 Time In/Out 16:55 - 17:25
--- NOTE | 2017-04-11 17:50 | NUR ---
DR ADAMS GAVE ORDER FOR STOOL CULTURE. ORDER CARRIED OUT. PT IN BED, AWAKE, WATCHING TV. NO RESPIRATORY DISTRESS, PAIN,OR DISCOMFORT NOTED. LAST BP 96/60 WITH MAP 72. WILL ENDORSE TO NOC SHIFT.
[2017-04-11 18:00] VITALS: BP 126/71
[2017-04-11 18:15] VITALS: BP 96/60
[2017-04-11 19:10] VITALS: BP 105/59
--- NOTE | 2017-04-11 21:02 | NUR ---
REPORT GIVEN TO KARIS RANDOLPH TO ASSUME PT CARE RESPONSABILITY.
[2017-04-11 21:17] VITALS: BP 112/60
--- NOTE | 2017-04-11 22:04 | NUR ---
PT IN BED AWAKE WITH ON AND OFF YELLING, DUE MEDS GIVEN MAKAYLA WELL, REPOSITIONED TO COMFORT, KEEP DRY AND CLEAN, NO EPISODES OF DIARRHEA ABD SOFT BS ACTIVE X4 QUADRANTS, BP RECHECKED 112/60 HR 89, IVF INFUSING @ 20 CC/HR, NO DISTRESS O2 SAT 98% IN ROOM AIR, LUNGS DIM BILAT BASES, RT PROT FOR TX, SCD'S FOR DVT PROPHYLAXIS, SHIFT ASSESSMENT DONE CONT TO MONITOR.
--- NOTE | 2017-04-12 | NUR ---
DR ROBERT AWARE OF CT ABD AND PELVIS WITH CONTRAST RESULT NNO AT THIS TIME.
[2017-04-12 05:46] VITALS: BP 120/53
--- NOTE | 2017-04-12 06:05 | NUR ---
PT AWAKE MAKING NOISE RESTLESS, GAVE 9AM DOSE OF SEROQUEL @ THIS TIME, REPOSITIONED PT TO COMFORT AND KEEP DRY AND CLEAN, I&O MEASURED AND RECORDED NO EPISODES OF DIARRHEA, WILL CONT TO MONITOR.
[2017-04-12 06:07] LABS: BASOPHIL % 0.3 % (0-2); PLATELET COUNT 385 x10^3mcL (130-400)
--- NOTE | 2017-04-12 06:15 | NUR ---
SLEPT WELL NO EPISODES OF VTACH, SR IN THE MONITOR HR @ 70'S NO CP OR PRESSURE BS 162 MG/DL COVERED WITH 3UNITS REG INSU / SLIDING SCALE, DENIES PAIN NOT IN DISTRESS, V/S STABLE, IVF INFUSING WELL ORDERED, CONT TO MONITOR.
[2017-04-12 06:24] LABS: RED CELL DISTRIBUTION WIDTH 15.3 % (11.5-14.5)
[2017-04-12 06:37] LABS: CALCIUM 8.6 mg/dL (8.5-10.1); CHLORIDE SERUM 110 mmol/L (98-107); CREATININE SERUM 0.9 mg/dL (0.7-1.3); GFR1 > 60 mL/min; GLUCOSE SERUM 67 mg/dL (74-106); POTASSIUM SERUM 4.7 mmol/L (3.5-5.1); SODIUM SERUM 148 mmol/L (136-145)
--- NOTE | 2017-04-12 07:30 | NUR ---
AWAKE NON-VERBAL.DOES NOT FOLLOW COMMAND.HX OF MENTAL RETARDATION,CERABRAL PALSY AND SEIZURE.NO SIGNS OF PAIN.LUNG SOUND CLEAR/DIM.PT NON TELE.ON SEIZURE PRECAUTION SIDE RAILS PADDED.Q 2 HOUR TURN.HOB AT 30 DEG ANGLE FOR ASPIRATION PRECAUTION.DEVI DRAINING TO GRAVITY YELLOW IN COLOR.CALL LIGHT WITHIN REACH.INSTRUCTED TO CALL FOR ANY PAIN/DISCOMFORT.PT VERBALIZES UNDERSTANDING.WILL CONTINUE TO MONITOR PT.
[2017-04-12 07:45] VITALS: BP 107/71
--- NOTE | 2017-04-12 11:05 | NUR ---
INFORMED ABOUT PT'S T=101.APPLIED COLD COMPRESS AND GAVE TYLENOL BUT STILL T=101. ORDERED TORADOL 30 MG IVP
[2017-04-12 14:23] VITALS: BP 112/80
--- NOTE | 2017-04-12 14:28 | NUR ---
LATEST GNSD=428.3 AFTER TORADOL AND COLD COMPRESS WILL CONTINUE TO MONITOR.
--- NOTE | 2017-04-12 15:26 | NUR ---
Follow-up Nutrition Assessment Dx:Pneumonia Labs:04/12: Na:148H, BL, H/H:8.9/27L Meds: Colace, Keppra, Lactinex, NS IV, Zofran Diet: Pureed with nectar thickened liquids PO intake: 04/08: B:100%, 04/09: B:20%, 04/10: NPO 04/11: B:100%, D:100%, 04/12: B"100% Weights: 04/07:177#, 04/09:185#, 04/12:177# weight stable Skin: intact Edema: trace to BLE Last BM: 04/11 Per progress note 04/11, latest CXR shows continued evidence of a subtle infiltrate in the right lung apex along with dense retrocardiac consolidation, not significantly changed. There is some degree of vascular congestion, similar to the most recent prior chest radiograph. There is no convincing evidence of right pleural effusion. A small left pleural effusion cannot be excluded.Swtiched from oxymizer to nasal cannula, Oxygen Saturation 93%Patient was hypotensive with MAP 58, giving 2 500L bolus and rechecking. During visit, observed pt being fed lunch by [employer]. [employer] reports pt with improved PO intake once diet texture was changed. No N/V/D/C. Estimated Nutritional Needs based on actual body weight 80kg Energy: 1917kcal/kg (11.1kcal/cm ht for CP with physical restriction) Protein: 64-80g/day (0.8-1.0g/kg for maintenance) Fluid:2000-2400ml/day (25-30kcal/kg for maintenance) Nutrition Diagnosis 1. Possible chewing difficulty related to patophysiological causes as evidenced by nursing report of patient appears to have difficulty chewing and nursing report of having chopped up food at mealtimes, suboptimal PO intakes between 30-100% (resolved, pt on pureed diet) Intervention 1. Recommend continue with pureed with nectar thickened liquids per ST recommendations. Monitor/Evaluate Previous goal: PO intakes to meet at least 75% of est needs (met) Goal: PO intake at least 75% of estimated needs Monitor: PO intake, Labs, GI function F/U in7 days as low risk:04/19
--- NOTE | 2017-04-12 15:27 | NUR ---
1. Recommend continue with pureed with nectar thickened liquids per ST recommendations.
--- NOTE | 2017-04-12 15:34 | NUR ---
GAVE HIM NORCO 1 TAB ORDERED FOR CONSTANT MOANING/FLACC=01/18 .WILL CONTINUE TO MONITOR PT.
[2017-04-12 16:49] VITALS: BP 98/62
--- NOTE | 2017-04-12 17:28 | NUR ---
GAVE ATIVAN 1 MG IVP ORDERED FOR PT APPEARS TO BE UNCOMFORTABLE AND MOANING.
--- NOTE | 2017-04-12 18:04 | NUR ---
CHECKED ON PT COMFORTABLY SLEEPING.NO SIGNS OF DISTRESS.
--- NOTE | 2017-04-12 18:17 | NUR ---
NO SIGNIFICANT CHANGE NOTED.WILL ENDORSE TO NEXT SHIFT.
[2017-04-12 19:55] VITALS: BP 100/54
--- NOTE | 2017-04-12 20:00 | NUR ---
PT AWAKE QUIET NOT IN ANY DISTRESS LUNGS DIM AT THE BASES NO COUGHING OR CHEST CONGESTION, RT PROT FOR TX, ASP PREC, SATURATING 96% RA, IVF NS INFUSING @ TKO IV ACCESS @ RT WRIST PATENT NON INFIL, SCD'S ON FOR DVT PROPHYLAXIS, NO S/SX OF PAIN OR DISCOMFORTS, ABD SOFT NON TENDER BS ACTIVE, NO EPISODES OF DIARRHEA AFEBRILE TEMP 98.6, BP 98/56, SHIFT ASSESSMENT DONE, KEEP DRY AND CLEAN REPOSTIONED TO COMFORT, CONT TO MONITOR.
[2017-04-13] VITALS (8 sets, daily range): BP systolic 89–121; BP diastolic 43–68
--- NOTE | 2017-04-13 02:40 | NUR ---
PT SLEEPING AROUSABLE TO TACTILE STIMULUS NO S/SX OF PAIN NOR DISCOMFORTS, REPOSITIONED, DRY AND CLEAN, F/C DRAINING FREELY YELLOW COLORED URINE OUTPUT, VISUAL CHECKED AT INTERVALS.
--- NOTE | 2017-04-13 04:47 | NUR ---
PT BP 89/43 MAP (62) RECHECKED BP SEVERAL TIMES STILL ON LOW SIDE, HR 77, AFEBRILE, DR ROBERT MADE AWARE AWAITING FOR ORDERS.
--- NOTE | 2017-04-13 06:41 | NUR ---
RECHECKED BP 112/56 MAP 74, HR 94, WILL ENDORSE TO INCOMING SHIFT FOR F/U CARE.
--- NOTE | 2017-04-13 07:10 | NUR ---
RECEIVED Pt. AWAKE, ALERT, NONVERBAL ABLE TO MAKE SOUNDS. RESPIRATIONS EVEN AND UNLABORED. NO FACIAL GRIMACING/MOANING NO SIGNS OF PAIN/DISCOMFORT. NO DISTRESS NOTED. IVF RUNNING TO IV RIGHT WRIST PATENT AND INTACT. MEDSURG Pt. NO TELE IN PLACE. DEVI CATHETER IN PLACE YELLOW URINE NOTED. BED LOW/LOCKED. CALL LIGHT IN REACH. WILL CONTINUE TO MONITOR.
--- NOTE | 2017-04-13 08:10 | NUR ---
MADE ROUNDS WITH DR. JARAMILLO AND MEDICINE TEAM, Pt. TO HAVE HOSPICE EVAL, AWAITING FOR FAMILY TO ARRIVE.
[2017-04-13 08:21] LABS: BASOPHIL % 0.4 % (0-2); PLATELET COUNT 344 x10^3mcL (130-400)
[2017-04-13 08:22] LABS: RED CELL DISTRIBUTION WIDTH 15.6 % (11.5-14.5)
[2017-04-13 08:31] LABS: CALCIUM 8.5 mg/dL (8.5-10.1); CARBON DIOXIDE 32.5 mmol/L (21-32); CHLORIDE SERUM 108 mmol/L (98-107); GFR1 > 60 mL/min; GLUCOSE SERUM 78 mg/dL (74-106); MAGNESIUM 1.9 mg/dL (1.8-2.4); PHOSPHOROUS 3.5 mg/dL (2.5-4.9); POTASSIUM SERUM 4.6 mmol/L (3.5-5.1); SODIUM SERUM 142 mmol/L (136-145)
--- NOTE | 2017-04-13 11:01 | NUR ---
DR. EVANGELISTA/MELISSA AT BEDSIDE SPEAKING WITH Pt. BROTHER.
--- NOTE | 2017-04-13 14:13 | NUR ---
RECHECKED Pt. BP 90/51 MAP [address] BROWN MADE AWARE.
--- NOTE | 2017-04-13 15:15 | NUR ---
BP 101/68 MAP RECHECKED Pt. VSS POST IV FLUIDS. BP 101/68 MAP 79 HR 81.
--- NOTE | 2017-04-13 18:07 | NUR ---
Pt. AWAKE, SMILING MAKES SOUNDS. RESPIRATIONS EVEN AND UNLABORED O2 2L/MIN NC Pt. NOTED REMOVING NASAL CANNULA AND Pt. INSTRUCTED TO KEEP NC IN PLACE. NO DISTRESS NOTED. NO SIGNS PAIN/DISCOMFORT AT THIS TIME. IVF RUNNING TO IV RIGHT WRIST PATENT AND INTACT. SCD IN PLACE. BED LOW/LOCKED. CALL LIGHT IN REACH.
--- NOTE | 2017-04-13 19:28 | NUR ---
RECEIVED PT FROM PREVIOUS SHIFT NURSE. PT NONVERBAL. AWAKE AND ALERT. MED SURG PT. DENIES CP/PRESSURE. PULSES PRESENT, NO EDEMA NOTED. LUNG SOUNDS DIMINISHED, WHEEZES HEARD ON 2L NC. DENIES SOB/DIFFICULTY BREATHING. BOWEL SOUNDS ACTIVE. DEVI CATH IN PLACE, YELLOW OUTPUT NOTED. TOTAL CARE. SKIN INTACT. IV IN RAC, INTACT AND PATENT. BED IN LOWEST POSITION. CALL LIGHT WITHIN REACH. WILL CONTINUE TO MONITOR.
--- NOTE | 2017-04-14 01:27 | NUR ---
PT RESTING IN BED. RR EVEN AND UNLABORED. NO ACUTE DISTRESS NOTED. CALL LIGHT WITHIN REACH. BED IN LOWEST POSITION. WILL CONTINUE TO MONITOR.
[2017-04-14 05:31] VITALS: BP 118/61
[2017-04-14 06:08] LABS: BASOPHIL % 0.2 % (0-2); PLATELET COUNT 335 x10^3mcL (130-400)
[2017-04-14 06:24] LABS: CALCIUM 8.3 mg/dL (8.5-10.1); CARBON DIOXIDE 31.9 mmol/L (21-32); CHLORIDE SERUM 109 mmol/L (98-107); GFR1 > 60 mL/min; GLUCOSE SERUM 106 mg/dL (74-106); POTASSIUM SERUM 3.9 mmol/L (3.5-5.1); SODIUM SERUM 144 mmol/L (136-145)
[2017-04-14 06:26] LABS: RED CELL DISTRIBUTION WIDTH 15.2 % (11.5-14.5)
--- NOTE | 2017-04-14 07:15 | NUR ---
RECEIVED Pt. APPEARS TO BE SLEEPING AT THIS TIME. RESPIRATIONS EVEN AND UNLABORED O2 2L/MIN NC. NO DISTRESS NOTED. IVF RUNNING TO IV RIGHT WRIST PATENT AND INTACT. SZ PRECAUTIONS IN PLACE. BED LOW/LOCKED. CALL LIGHT IN REACH.
--- NOTE | 2017-04-14 09:03 | NUR ---
MADE ROUNDS WITH DR. VALENTE AND MEDICINE TEAM, Pt. TO BE PLACED IN SNF TODAY.
[2017-04-14 10:01] VITALS: BP 106/73
--- NOTE | 2017-04-14 12:57 | NUR ---
DR. NOVAK NOTIFIED OF VALPORIC ACID LEVEL AT 13.
[2017-04-14 15:06] LABS: AMYLASE 44 U/L (25-115); LIPASE 176 IU/L (73-393)
--- NOTE | 2017-04-14 16:21 | NUR ---
DR. ORDOÑEZ AND DR. NOVAK SPEAKING WITH Pt. BROTHER.
[2017-04-14] MEDS ORDERED: MEROPENEM-1 GM/50 ML IV (17:08)
[2017-04-14] MEDS ORDERED: PULMICORT0.5 MG/2 M IH (17:10)
[2017-04-14] MEDS ORDERED: LAC PO (17:11)
[2017-04-14 17:39] VITALS: BP 106/53
--- NOTE | 2017-04-14 17:56 | NUR ---
REPORT GIVEN TO PORSCHE HOBBS FROM [facility].
[2017-04-14] MEDS ORDERED: DEPL PO (17:57)
[2017-04-14 18:05] VITALS: BP 106/53
--- NOTE | 2017-04-14 18:19 | NUR ---
Pt. AWAKE, GARBLED SPEECH, MAKES SOUNDS. RESPIRATIONS EVEN AND UNLABORED. NO DISTRESS NOTED. IVF RUNNING TO IV Rt. WRIST PATENT AND INTACT. DEVI CATHETER DRAINING CLEAR YELLOW URINE. Pt. CHANGED AND IS CLEAN AND DRY. SX PRECAUTIONS AND SCD IN PLACE. BED LOW/LOCKED. Pt. BROTHER SANTIAGO AG AT BEDSIDE AND SIGNED ALL DISCHARGE PAPERWORK. BED LOW/LOCKED. CALL LIGHT IN REACH.
--- NOTE | 2017-04-14 19:37 | NUR ---
RECEIVED PT FROM PREVIOUS SHIFT NURSE. PT AWAKE AND ALERT, NONVERBAL. SEIZURE PRECAUTIONS IN PLACE. MED SURG PT. NO ACUTE DISTRESS NOTED. PULSES PRESENT, NO EDEMA NOTED. LUNG SOUNDS DIMINISHED, ON 2L NC. NO SOB/ DIFFICULTY BREATHING NOTED. BOWEL SOUNDS ACTIVE. DEVI CATHETER IN PLACE, YELLOW OUTPUT NOTED. TOTAL CARE. SKIN INTACT. IV IN R. WRIST, IV INTACT AND PATENT. BED IN LOWEST POSITION. CALL LIGHT WITHIN REACH. WILL CONTINUE TO MONITOR.
--- NOTE | 2017-04-14 21:22 | NUR ---
PT READY FOR TRANSFER AND PICKED UP BY [facility]. PT IN NO ACUTE DISTRESS. BROTHER AT BEDSIDE.
== END 2017-04-14 21:25 | DRG 137 ==
LOC: ED 18:52 → MU 21:29 → DU 21:29 → ED 21:30 → DU 21:30 → MU 04-07 11:10
PROVIDERS: Emergency Medicine; Family Medicine; Student in an Organized Health Care Education/Training Program; ADMIT Family Medicine
PROC: 0W9B3ZZ Drainage of Left Pleural Cavity, Percutaneous Approach (ICD-10-PCS; principal; 2017-04-10)
DX: J69.0 Pneumonitis due to inhalation of food and vomit (principal); N17.0 Acute kidney failure with tubular necrosis; J96.00 Acute respiratory failure, unspecified whether with hypoxia or hypercapnia; E43 Unspecified severe protein-calorie malnutrition; G80.9 Cerebral palsy, unspecified; F39 Unspecified mood [affective] disorder; G40.909 Epilepsy, unspecified, not intractable, without status epilepticus; G47.00 Insomnia, unspecified; R62.50 Unspecified lack of expected normal physiological development in childhood; Z68.22 Body mass index [BMI] 22.0-22.9, adult; I10 Essential (primary) hypertension; J90 Pleural effusion, not elsewhere classified; E87.0 Hyperosmolality and hypernatremia; D64.9 Anemia, unspecified
CPT/HCPCS: 32555; 36600; 83880; 84439; 87046; 87046-59; 87804; 92507-GN; 92526-GN; 92610; C1729; J0456; J1885; J1956; J2060; J2185; J2405; J2543; J2920; J3370; J3490; J7030; J7040; J7620; J7626; Q0092

== ENCOUNTER 2017-05-25 10:18 | Inpatient (IN) | payer OTHER ==
[~2017-05-25] VITALS: Ht 170.2 cm; Wt 75.1 kg
[~2017-05-25 10:18] MED LIST: AMBIEN5 MG PO; CLONAZEPAM0.5 MG PO; DEPL PO; DIVALPROEX SOD250 M2 PO; KEPPRA1000 M1 PO; LAC PO; MEROPENEM-1 GM/50 ML IV; PULMICORT0.5 MG/2 M IH; SEROQUEL200 MG PO; STOOL SOFTENER100 MG PO
[2017-05-25] MEDS ORDERED: DEPAKOTE ER250 M1 PO (10:36)
[2017-05-25] MEDS ORDERED: THEREMS1 TA1 PO (10:42)
[2017-05-25] MEDS ORDERED: [UNRECOGNIZED DRUG - CODE] PO (10:43)
[2017-05-25] MEDS ORDERED: APRODINE1 TAB PO ×2 (10:44→15:03)
[2017-05-25] MEDS ORDERED: PHEDML PO (10:45)
[2017-05-25 11:12] LABS: CALCIUM 8.9 mg/dL (8.5-10.1); CARBON DIOXIDE 28.6 mmol/L (21-32); CHLORIDE SERUM 103 mmol/L (98-107); CREATININE SERUM 1.1 mg/dL (0.7-1.3); GFR1 > 60 mL/min; GLUCOSE SERUM 77 mg/dL (74-106); POTASSIUM SERUM 4.2 mmol/L (3.5-5.1); SODIUM SERUM 139 mmol/L (136-145)
[2017-05-25 11:22] LABS: ALKALINE PHOSPHATASE 79 U/L (46-116); ALT/SGPT 10 U/L (16-63); AST/SGOT 12 U/L (15-37); BILIRUBIN TOTAL 0.6 mg/dL (0.20-1.00)
[2017-05-25 11:28] LABS: CK-MB < 0.5 ng/mL (0-3.6); CREATINE KINASE 66 U/L (39-308)
[2017-05-25 11:29] LABS: ALBUMIN 1.7 g/dL (3.4-5.0); TOTAL PROTEIN, SERUM 8.3 g/dL (6.4-8.2)
[2017-05-25 11:30] LABS: PHOSPHOROUS 4.7 mg/dL (2.5-4.9)
[2017-05-25 11:31] LABS: CHOLESTEROL/HDL RATIO 6.7
[2017-05-25 11:36] LABS: BASOPHIL % 0.1 % (0-2); PLATELET COUNT 341 x10^3mcL (130-400)
[2017-05-25 11:38] LABS: FREE T4 1.15 ng/dL (0.76-1.46); FREE THYROXINE INDEX 1.8 ug/dL (1.4-4.5); T4(THYROXINE) 5.3 ug/dL (4.7-13.3)
[2017-05-25 11:49] LABS: T3 TOTAL 0.56 ng/mL
[2017-05-25] MEDS ORDERED: ADV250/50 INH (12:21)
[2017-05-25] MEDS ORDERED: NOR5 PO (12:22)
[2017-05-25] MEDS ORDERED: ECOTRIN81 M2 PO (12:23)
[2017-05-25] MEDS ORDERED: CARVEDILOL25 M1 PO (12:23)
[2017-05-25] MEDS ORDERED: GLUCOTROL5 MG PO (12:24)
[2017-05-25] MEDS ORDERED: GABAPENTIN600 M1 PO (12:24)
[2017-05-25] MEDS ORDERED: HYDRALAZINE HCL25 MG PO (12:25)
[2017-05-25] MEDS ORDERED: APAP/HYDROCODON1 T13 PO (12:27)
[2017-05-25] MEDS ORDERED: ISOSORBIDE DINI10 MG PO (12:27)
[2017-05-25] MEDS ORDERED: LASIX20 MG PO (12:28)
[2017-05-25] MEDS ORDERED: MONTELUKAST SOD10 M1 PO (12:29)
[2017-05-25] MEDS ORDERED: NITROSTAT0.4 MG SL (12:30)
[2017-05-25] MEDS ORDERED: PANTOPRAZOLE SO40 M1 PO (12:30)
[2017-05-25] MEDS ORDERED: POTASSIUM CHLO10 MEQ PO (12:31)
[2017-05-25] MEDS ORDERED: VYTORIN1 TAB PO (12:32)
[2017-05-25] MEDS ORDERED: COUMADIN1 MG PO (12:34)
[2017-05-25 13:36] VITALS: BP 85/49
[2017-05-25] MEDS ORDERED: THEREMS-M1 EACH PO (14:55)
[2017-05-25] MEDS ORDERED: SEROQUEL200 MG PO (14:56)
[2017-05-25] MEDS ORDERED: COLACE100 MG PO (14:57)
[2017-05-25] MEDS ORDERED: KEPPRA1000 M1 PO ×2 (14:58→14:59)
[2017-05-25] MEDS ORDERED: CLONAZEPAM0.5 MG PO (15:00)
[2017-05-25] MEDS ORDERED: DEPAKOTE500 MG PO (15:01)
[2017-05-25] MEDS ORDERED: AMBIEN5 MG PO (15:02)
[2017-05-25] MEDS ORDERED: PROMETHAZI6.25 MG/3 PO (15:04)
[2017-05-25 16:18] VITALS: BP 102/56
[2017-05-25 18:23] VITALS: BP 102/56
[2017-05-25 20:39] VITALS: BP 111/56
[2017-05-25 21:37] LABS: microscopic required? NO
[2017-05-25 21:44] LABS: urine erythrocyte NEGATIVE (NEGATIVE)
[2017-05-25 23:22] VITALS: BP 85/50
[2017-05-26] VITALS (19 sets, daily range): BP systolic 76–107; BP diastolic 35–63
[2017-05-26 07:18] LABS: BASOPHIL % 0.1 % (0-2); PLATELET COUNT 242 x10^3mcL (130-400)
[2017-05-26 07:19] LABS: RED CELL DISTRIBUTION WIDTH 17.6 % (11.5-14.5)
[2017-05-26 08:49] LABS: CALCIUM 8.1 mg/dL (8.5-10.1); CARBON DIOXIDE 27.9 mmol/L (21-32); CHLORIDE SERUM 105 mmol/L (98-107); CREATININE SERUM 1.2 mg/dL (0.7-1.3); GFR1 > 60 mL/min; GLUCOSE SERUM 73 mg/dL (74-106); PHOSPHOROUS 5.8 mg/dL (2.5-4.9); POTASSIUM SERUM 4.7 mmol/L (3.5-5.1); SODIUM SERUM 138 mmol/L (136-145)
[2017-05-27] VITALS (20 sets, daily range): BP systolic 92–120; BP diastolic 53–72
[2017-05-27 06:02] LABS: BASOPHIL % 0.1 % (0-2); PLATELET COUNT 210 x10^3mcL (130-400)
[2017-05-27 06:11] LABS: RED CELL DISTRIBUTION WIDTH 17.5 % (11.5-14.5)
[2017-05-27 06:19] LABS: CALCIUM 8.1 mg/dL (8.5-10.1); CARBON DIOXIDE 27.4 mmol/L (21-32); CHLORIDE SERUM 106 mmol/L (98-107); GFR1 > 60 mL/min; GLUCOSE SERUM 76 mg/dL (74-106); MAGNESIUM 1.8 mg/dL (1.8-2.4); SODIUM SERUM 139 mmol/L (136-145)
[2017-05-28] VITALS (25 sets, daily range): BP systolic 94–112; BP diastolic 48–64
[2017-05-28 05:54] LABS: BASOPHIL % 0.1 % (0-2); PLATELET COUNT 211 x10^3mcL (130-400)
[2017-05-28 05:58] LABS: RED CELL DISTRIBUTION WIDTH 17.7 % (11.5-14.5)
[2017-05-28 06:14] LABS: CALCIUM 8.3 mg/dL (8.5-10.1); CARBON DIOXIDE 28.9 mmol/L (21-32); CHLORIDE SERUM 104 mmol/L (98-107); GFR1 > 60 mL/min; GLUCOSE SERUM 79 mg/dL (74-106); MAGNESIUM 1.7 mg/dL (1.8-2.4); PHOSPHOROUS 5.2 mg/dL (2.5-4.9); SODIUM SERUM 139 mmol/L (136-145)
[2017-05-29] VITALS (20 sets, daily range): BP systolic 93–107; BP diastolic 45–59
[2017-05-29 05:47] LABS: BASOPHIL % 0.1 % (0-2); PLATELET COUNT 246 x10^3mcL (130-400)
[2017-05-29 06:09] LABS: CALCIUM 8.3 mg/dL (8.5-10.1); CARBON DIOXIDE 31.4 mmol/L (21-32); CHLORIDE SERUM 108 mmol/L (98-107); CREATININE SERUM 0.8 mg/dL (0.7-1.3); GFR1 > 60 mL/min; GLUCOSE SERUM 119 mg/dL (74-106); MAGNESIUM 1.9 mg/dL (1.8-2.4); PHOSPHOROUS 4.5 mg/dL (2.5-4.9); POTASSIUM SERUM 3.8 mmol/L (3.5-5.1); SODIUM SERUM 143 mmol/L (136-145)
[2017-05-30] VITALS (17 sets, daily range): BP systolic 96–134; BP diastolic 51–70
[2017-05-30 05:44] LABS: BASOPHIL % 0.5 % (0-2); PLATELET COUNT 295 x10^3mcL (130-400)
[2017-05-30 05:50] LABS: RED CELL DISTRIBUTION WIDTH 16.4 % (11.5-14.5)
[2017-05-30 06:01] LABS: CALCIUM 8.6 mg/dL (8.5-10.1); CARBON DIOXIDE 34.2 mmol/L (21-32); CHLORIDE SERUM 106 mmol/L (98-107); CREATININE SERUM 0.9 mg/dL (0.7-1.3); GFR1 > 60 mL/min; GLUCOSE SERUM 114 mg/dL (74-106); PHOSPHOROUS 4.3 mg/dL (2.5-4.9); POTASSIUM SERUM 3.6 mmol/L (3.5-5.1); SODIUM SERUM 143 mmol/L (136-145)
[2017-05-31] VITALS (20 sets, daily range): BP systolic 91–125; BP diastolic 42–95
[2017-05-31 05:25] LABS: BASOPHIL % 0.4 % (0-2); PLATELET COUNT 319 x10^3mcL (130-400)
[2017-05-31 05:27] LABS: RED CELL DISTRIBUTION WIDTH 18.3 % (11.5-14.5)
[2017-05-31 05:48] LABS: CALCIUM 8.5 mg/dL (8.5-10.1); CARBON DIOXIDE 33.5 mmol/L (21-32); CHLORIDE SERUM 102 mmol/L (98-107); GFR1 > 60 mL/min; GLUCOSE SERUM 116 mg/dL (74-106); MAGNESIUM 1.9 mg/dL (1.8-2.4); PHOSPHOROUS 4.1 mg/dL (2.5-4.9); SODIUM SERUM 140 mmol/L (136-145)
[2017-06-01] VITALS (17 sets, daily range): BP systolic 94–124; BP diastolic 44–70
[2017-06-01 05:16] LABS: PLATELET COUNT 345 x10^3mcL (130-400)
[2017-06-01 05:41] LABS: CALCIUM 8.4 mg/dL (8.5-10.1); CARBON DIOXIDE 32.4 mmol/L (21-32); CHLORIDE SERUM 104 mmol/L (98-107); GFR1 > 60 mL/min; GLUCOSE SERUM 118 mg/dL (74-106); MAGNESIUM 2.2 mg/dL (1.8-2.4); PHOSPHOROUS 4.3 mg/dL (2.5-4.9); POTASSIUM SERUM 4.4 mmol/L (3.5-5.1); SODIUM SERUM 139 mmol/L (136-145)
[2017-06-01 05:45] LABS: RED CELL DISTRIBUTION WIDTH 18.2 % (11.5-14.5)
[2017-06-01 07:17] LABS: ATYPICAL LYMPH 4 %; BAND NEUTROPHIL 4 % (0-10); BASOPHIL 0 % (0-2); MONOCYTE 13 % (0-7); MYELOCYTE 2 % (0-2); SEGMENTED NEUTROPHILS 70 % (37-75)
[2017-06-01 07:18] LABS: PLATELET MORPHOLOGY PLATELETS NORMAL; rbc morphology (normal/abnorm) ABNORMAL (NORMAL)
[2017-06-02] VITALS (18 sets, daily range): BP systolic 95–124; BP diastolic 51–65
[2017-06-02 05:20] LABS: BASOPHIL % 0.3 % (0-2); PLATELET COUNT 373 x10^3mcL (130-400)
[2017-06-02 05:55] LABS: CALCIUM 8.9 mg/dL (8.5-10.1); CARBON DIOXIDE 30.2 mmol/L (21-32); CHLORIDE SERUM 108 mmol/L (98-107); CREATININE SERUM 0.9 mg/dL (0.7-1.3); GFR1 > 60 mL/min; GLUCOSE SERUM 108 mg/dL (74-106); MAGNESIUM 2.4 mg/dL (1.8-2.4); PHOSPHOROUS 4.2 mg/dL (2.5-4.9); POTASSIUM SERUM 4.3 mmol/L (3.5-5.1); SODIUM SERUM 143 mmol/L (136-145)
[2017-06-03] VITALS (18 sets, daily range): BP systolic 93–121; BP diastolic 49–64
[2017-06-03 05:12] LABS: BASOPHIL % 0.2 % (0-2)
[2017-06-03 05:23] LABS: CALCIUM 8.5 mg/dL (8.5-10.1); CARBON DIOXIDE 29.7 mmol/L (21-32); CHLORIDE SERUM 105 mmol/L (98-107); CREATININE SERUM 0.9 mg/dL (0.7-1.3); GFR1 > 60 mL/min; GLUCOSE SERUM 101 mg/dL (74-106); MAGNESIUM 2.3 mg/dL (1.8-2.4); PHOSPHOROUS 4.7 mg/dL (2.5-4.9); POTASSIUM SERUM 4.2 mmol/L (3.5-5.1); SODIUM SERUM 140 mmol/L (136-145)
[2017-06-03 05:53] LABS: RED CELL DISTRIBUTION WIDTH 18.3 % (11.5-14.5)
[2017-06-03 05:54] LABS: PLATELET COUNT 442 x10^3mcL (130-400)
[2017-06-04] VITALS (19 sets, daily range): BP systolic 95–133; BP diastolic 49–71
[2017-06-04 04:48] LABS: BASOPHIL % 0.2 % (0-2)
[2017-06-04 04:50] LABS: PLATELET COUNT 487 x10^3mcL (130-400); RED CELL DISTRIBUTION WIDTH 18.4 % (11.5-14.5)
[2017-06-04 04:55] LABS: CALCIUM 8.8 mg/dL (8.5-10.1); CARBON DIOXIDE 30.5 mmol/L (21-32); CHLORIDE SERUM 104 mmol/L (98-107); CREATININE SERUM 0.9 mg/dL (0.7-1.3); GFR1 > 60 mL/min; GLUCOSE SERUM 109 mg/dL (74-106); MAGNESIUM 2.4 mg/dL (1.8-2.4); PHOSPHOROUS 4.4 mg/dL (2.5-4.9); POTASSIUM SERUM 4.1 mmol/L (3.5-5.1); SODIUM SERUM 139 mmol/L (136-145)
[2017-06-05] VITALS (19 sets, daily range): BP systolic 91–114; BP diastolic 51–75; Ht 170.2 cm; Wt 75.1 kg
[2017-06-05 05:30] LABS: PLATELET COUNT 502 x10^3mcL (130-400)
[2017-06-05 05:36] LABS: CALCIUM 8.2 mg/dL (8.5-10.1); CARBON DIOXIDE 30.6 mmol/L (21-32); CHLORIDE SERUM 105 mmol/L (98-107); GFR1 > 60 mL/min; GLUCOSE SERUM 121 mg/dL (74-106); MAGNESIUM 2.3 mg/dL (1.8-2.4); PHOSPHOROUS 3.9 mg/dL (2.5-4.9); POTASSIUM SERUM 3.5 mmol/L (3.5-5.1); SODIUM SERUM 139 mmol/L (136-145)
[2017-06-05 07:40] LABS: rbc morphology (normal/abnorm) ABNORMAL (NORMAL)
[2017-06-05 07:42] LABS: ATYPICAL LYMPH 2 %; BAND NEUTROPHIL 4 % (0-10); MONOCYTE 5 % (0-7); SEGMENTED NEUTROPHILS 73 % (37-75)
[2017-06-05 07:43] LABS: PLATELET MORPHOLOGY PLATELETS INCREASED
[2017-06-05 17:49] LABS: BASOPHIL % 0.3 % (0-2)
[2017-06-05 18:00] LABS: PLATELET COUNT 554 x10^3mcL (130-400); RED CELL DISTRIBUTION WIDTH 18.4 % (11.5-14.5)
[2017-06-06] VITALS (15 sets, daily range): BP systolic 95–130; BP diastolic 47–103
[2017-06-06 05:36] LABS: BASOPHIL % 0.2 % (0-2)
[2017-06-06 05:48] LABS: CALCIUM 8.6 mg/dL (8.5-10.1); CARBON DIOXIDE 30.4 mmol/L (21-32); CHLORIDE SERUM 106 mmol/L (98-107); CREATININE SERUM 0.8 mg/dL (0.7-1.3); GFR1 > 60 mL/min; GLUCOSE SERUM 101 mg/dL (74-106); MAGNESIUM 2.2 mg/dL (1.8-2.4); PHOSPHOROUS 3.9 mg/dL (2.5-4.9); POTASSIUM SERUM 3.8 mmol/L (3.5-5.1); SODIUM SERUM 140 mmol/L (136-145)
[2017-06-06 05:55] LABS: PLATELET COUNT 563 x10^3mcL (130-400); RED CELL DISTRIBUTION WIDTH 18.1 % (11.5-14.5)
[2017-06-06] MEDS ORDERED: PULMICORT0.5 MG/2 M IH (16:23)
[2017-06-06] MEDS ORDERED: IPRATROPIUM BROM3 M2 HHN ×2 (16:23)
[2017-06-06] MEDS ORDERED: VITC PO (16:23)
[2017-06-06] MEDS ORDERED: VALLUD PO (16:23)
[2017-06-06] MEDS ORDERED: LEVETIRACET100 MG/M1 NG (16:23)
[2017-06-06] MEDS ORDERED: PROT40I IV (16:23)
[2017-06-06] MEDS ORDERED: TYL650L NG (16:23)
[2017-06-06] MEDS ORDERED: HEP5I SC (16:23)
[2017-06-06] MEDS ORDERED: FERL NG (16:23)
[2017-06-06] MEDS ORDERED: LAC PO (16:23)
[2017-06-06] MEDS ORDERED: ZOFI IV (16:23)
== END 2017-06-06 20:47 | DRG 130 ==
LOC: ED 10:18 → DU 10:41 → IC 10:41 → DU 12:04 → IC 05-26 05:38
PROVIDERS: Emergency Medicine; Family Medicine; Family Medicine Sports Medicine
PROC: 5A1955Z Respiratory Ventilation, Greater than 96 Consecutive Hours (ICD-10-PCS; principal; 2017-05-26)
PROC: 0BH17EZ Insertion of Endotracheal Airway into Trachea, Via Natural or Artificial Opening (ICD-10-PCS; 2017-05-26)
PROC: 05HM33Z Insertion of Infusion Device into Right Internal Jugular Vein, Percutaneous Approach (ICD-10-PCS; 2017-05-26)
PROC: B543ZZA Ultrasonography of Right Jugular Veins, Guidance (ICD-10-PCS; 2017-05-26)
DX: J69.0 Pneumonitis due to inhalation of food and vomit (principal); N17.0 Acute kidney failure with tubular necrosis; E43 Unspecified severe protein-calorie malnutrition; J96.01 Acute respiratory failure with hypoxia; I95.2 Hypotension due to drugs; G80.9 Cerebral palsy, unspecified; G40.909 Epilepsy, unspecified, not intractable, without status epilepticus; E83.39 Other disorders of phosphorus metabolism; D64.9 Anemia, unspecified; T44.7X5A Adverse effect of beta-adrenoreceptor antagonists, initial encounter; Y92.89 Other specified places as the place of occurrence of the external cause; Z68.24 Body mass index [BMI] 24.0-24.9, adult
CPT/HCPCS: 36556; 36600; 83880; 84439; A4628; C9113; J0330; J0456; J0696; J1642; J1644; J1885; J1940; J1956; J2250; J2405; J2543; J3010; J3475; J3490; J7030; J7620; J7626; Q0092